=== PATIENT | male | born 1950 | race Caucasian/White ===

== ENCOUNTER → 2016-08-04 | Day surgery (SDC) | payer MEDICARE, BC ==
[~2016-08-04] MED LIST: CENTRUM SILVER PO; HYDROCODON-ACE1 EAC5 PO; LIPITOR40 MG PO; PRILOSEC PO; PRINIVIL20 M1 PO; TOPROL XL50 MG PO; ZOLOFT50 MG PO
--- NOTE | ~2016-08-04 | OR ---
Unit #: [id number] #: [id number] Patient: DAPHNEY ARCEO [id number] [address] [id number] [id number] MR#: [id number] NAME: DAPHNEY ARCEO ROOM: Date of Procedure: 08/04/2016 Admission Date: 08/04/2016 Surgeon: Sandeep Dodson M.D. : 1950 Attending Physician: Sandeep Dodson M.D. Primary Care Physician: No Primary Care Physician PROCEDURE OPERATIVE NOTE PREOPERATIVE DIAGNOSIS Right carpal tunnel syndrome. POSTOPERATIVE DIAGNOSIS Right carpal tunnel syndrome. PROCEDURE PERFORMED Right carpal tunnel release. SURGEON Sandeep Dodson M.D. MECHANICAL INTEGRITY SPECIALIST Lydia Camacho APRN. ANESTHESIA General. ESTIMATED BLOOD LOSS 10 mL. COMPLICATIONS None apparent. INDICATIONS Mr. 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 Given the advanced nature of his disease at presentation, we recommended surgical intervention. He elected to proceed. Risks, benefits, and alternatives were discussed including risk of injury to recurrent motor branch of the median nerve as well as the median nerve itself as well as wound healing problems and persisting atrophy of the thenar musculature. He elected to proceed. DESCRIPTION OF PROCEDURE The patient was identified in the preoperative holding area. The operative site was marked. Preoperative antibiotics were not indicated. The patient was brought to the operating room and placed supine on the operating table. A general anesthetic was induced. The right arm was positioned out laterally on a hand table. The arm was prepped and draped in a sterile fashion. A HemaClear tourniquet was used to exsanguinate the upper extremity. The hand was placed out on a (1) for positioning Unit #: [id number] #: [id number] Patient: DAPHNEY ARCEO purposes. The skin incision was marked out over the base of the palm. The skin was incised sharply with a 15-blade knife and dissection carried down to the palmar fascia. Dissection was carried down to the transverse carpal ligament itself. A small amount of thenar muscle was elevated up off the transverse carpal ligament radially. A small mosquito hemostat was used to dissect out over the distal edge of the ligament. This was then passed into the carpal tunnel staying both above and below to minimize any risk of injury to the recurrent motor branch of the median nerve. We then incised directly on the hemostat with a new 15-blade knife. Our release was carried in this fashion from distal to proximal. Release was carried up into the distal forearm fascia. Several remaining fascial bands were (2) distally. The skin incision was then extended slightly distal. Care was taken to avoid any injury to the superficial palmar arch at this level. Under direct visualization, these bands were released with small iris scissors and tenotomies. A [place] elevator was passed proximally and distally and confirmed satisfactory release and decompression. The tourniquet was removed. The wound was irrigated with sterile saline via bulb lavage. Hemostasis was achieved with a combination of Bovie and bipolar electrocautery. The wound was closed with 3-0 nylon in horizontal mattress suture fashion. A well-padded soft dressing was applied. DISPOSITION Stable to recovery room. Dictated by... Sandeep Dodson M.D. Teresita/aleshia TD: 08/04/2016 08:57 JOB #: [id number] PROCEDURE OPERATIVE NOTE Page 1 of 1 X Sandeep Dodson MD X PROCEDURE OPERATIVE NOTE
--- NOTE | ~2016-08-04 | EKG ---
PATIENT: DAPHNEY HILL UNIT #: [id number] Ventricular Rate: 60 BPM Atrial Rate: 60 BPM P-R Interval: 156 ms QRS Duration: 100 ms Q-T Interval: 406 ms QTC Calculation(Bezet): 406 ms P Dixon: 50 degrees Calculated R Dixon: 29 degrees Calculated T Dixon: 48 degrees Diagnosis Line: Normal sinus rhythm Diagnosis Line: Normal ECG Diagnosis Line: No previous ECGs available Diagnosis Line: Confirmed by ERON JAEGER MD ([id number]) on 08/04/2016 Diagnosis Line: 10:44:56 AM INTERPRETING MD: MIL GIVENS
[2016-08-04 06:34] LABS: HEMATOCRIT 39.5 % (38.0-50.0); HEMOGLOBIN 13.1 gm/dL (13.0-16.0); MEAN CELL VOLUME 88.5 FL (83-96); MEAN CORPUSCULAR HEMOGLOBIN 29.5 PG (28-34); MEAN CORPUSCULAR HGB CONC 33.3 g/dL (30-36); MEAN PLATELET VOLUME 7.1 FL (6.5-11.5); RED BLOOD COUNT 4.46 X10e (3.90-5.60); RED CELL DISTRIBUTION WIDTH 13.6 % (11.0-15.5); WHITE BLOOD COUNT 5.1 X10e3 (4.0-10.5)
[2016-08-04 07:11] LABS: BUN/CREATININE RATIO 31.42; CALCIUM SERUM 9.4 mg/dL (8.4-10.2); CREATININE SERUM 0.7 mg/dL (0.6-1.4); GLOM FILT RATE Estimated 97.7 mL/min (>60); POTASSIUM 4.2 mmol/L (3.5-5.1)
== END | disposition home or self-care (01) ==
LOC: CSUR 05:39
PROVIDERS: Orthopaedic Surgery
DX: G56.01 Carpal tunnel syndrome, right upper limb (principal); G56.02 Carpal tunnel syndrome, left upper limb; K21.9 Gastro-esophageal reflux disease without esophagitis; I10 Essential (primary) hypertension; F41.9 Anxiety disorder, unspecified; Z85.46 Personal history of malignant neoplasm of prostate; Z79.899 Other long term (current) drug therapy; Z96.659 Presence of unspecified artificial knee joint; Z98.890 Other specified postprocedural states
CPT/HCPCS: 80048; 85027; 93005; J1100; J2250; J2405; J3010